=== PATIENT | male | born 1960 | race Hispanic/Latino ===

== ENCOUNTER 2024-09-24 17:16 | Emergency (ER) | payer OTHER ==
[~2024-09-24 17:16] MED LIST: Iopamidol 370 76% 100 ML VIAL ONE
[2024-09-24 17:49] LABS: #Basophils 0.1 thou/uL (0.0-0.2); #Eosinophils 0.0 thou/uL (0.0-0.7); #Lymphocytes 1.6 thou/uL (1.20-3.40); #Monocytes 1.4 thou/uL (0.11-0.59); #Neutrophils 16.4 thou/uL (1.40-6.50); %Basophils 0.3 % (0.0-1.0); %Eosinophils 0.0 % (0.0-10.0); %Lymphocytes 8.0 % (21.0-51.0); %Monocytes 7.1 % (0.0-10.0); %Neutrophils 84.5 % (42.0-75.0); Hematocrit 40.3 % (42.0-52.0); Hemoglobin 14.0 g/dL (14.0-18.0); Mean Corpuscular Hemoglobin 31.3 pg (27.0-31.0); Mean Corpuscular Volume 90.0 fl (78.0-98.0); Platelet Count 325 10x3/uL (130-400); Red Blood Cell (RBC) Count 4.48 mill/uL (4.70-6.10); White Blood Cell (WBC) Count 19.4 10x3/uL (4.8-10.8)
[2024-09-24] MEDS ORDERED: Ibuprofen 200 MG TAB ONE (17:54)
[2024-09-24] MEDS ORDERED: Acetaminophen 500 MG TAB ONE (17:54)
[2024-09-24 17:58] LABS: ALT (SGPT) 25 U/L (Less than 45); AST (SGOT) 29 U/L (11-34); Albumin 2.5 g/dL (3.1-4.5); Alkaline Phosphatase 93 U/L (40-110); Anion Gap 13 mmol/L (10-20); BUN (Urea Nitrogen) 16 mg/dL (8.4-25.7); Bilirubin, Total 0.6 mg/dL (0.3-1.2); Calc. Creatinine Clearance 0 mL/min (70-130); Calcium 7.8 mg/dL (7.8-10.44); Carbon Dioxide 21 mmol/L (23-31); Chloride 101 mmol/L (98-107); Globulin 3.5 g/dL (2.4-3.5); Glucose 110 mg/dL (80-115); Potassium 4.0 mmol/L (3.5-5.1); Sodium 131 mmol/L (136-145)
[2024-09-24] MEDS ORDERED: cefTRIAXone (ROCEPHIN) 1 GM VIAL ONE (18:13)
[2024-09-24] MEDS ORDERED: cefTRIAXone (ROCEPHIN) 2 GM VIAL ONE (18:14)
[2024-09-24 18:22] LABS: Glucose, Urine (Dipstick) Negative (Negative); Leukocyte Large (Negative); Protein, Urine (Dipstick) 100 mg/dL (Neg-Trace); Specific Gravity, Urine Less/Equal 1.005 (1.005-1.030)
[2024-09-24 18:31] LABS: Bacteria/HPF 2+ HPF (None Seen); CAUTI Indications for Culture Pelvic or flank pain; RBC/HPF 0-3 HPF (0-3); WBC/HPF Greater than 50 HPF (0-3)
[2024-09-24 18:32] LABS: Urine Culture Reflex Yes Yes
== END 2024-09-24 20:29 | disposition short-term general hospital (02) ==
LOC: NAV ERS 17:16
DX: A41.9 Sepsis, unspecified organism (principal); N12 Tubulo-interstitial nephritis, not specified as acute or chronic
CPT/HCPCS: 36415; 74177; 80053; 81001; 83605; 85025; 87040; 87077; 87086; 87149; 87186; 96365; J0696; J7030; Q9967